=== PATIENT | female | born 1940 | race Caucasian/White ===

== ENCOUNTER 2018-02-04 10:11 | Day surgery (SDC) | payer MEDICARE, OTHER ==
[~2018-02-04 10:11] MED LIST: Lactated Ringers 1,000 ML IV SCH
[2018-02-04] MEDS ORDERED: fentaNYL 100 MCG/2 ML SDV ONE (12:34)
[2018-02-04] MEDS ORDERED: Propofol 200 MG/20 ML SDV ONE (12:34)
--- NOTE | 2018-02-04 13:56 | OR ---
PREOPERATIVE DIAGNOSES: 1. Screening colonoscopy. 2. History of polyps. POSTOPERATIVE DIAGNOSIS: Sigmoid diverticulosis, otherwise normal exam. PROCEDURE PROPOSED: Total flexible colonoscopy. PROCEDURE DONE: Total flexible colonoscopy. INDICATION: This is a 77-year-old female, who comes in for colonic surveillance. Her last examination was 10 years ago. She claims that she had a polyp at that point, but not confirmed. TECHNIQUE: She was brought to the endoscopy suite, placed in left lateral decubitus position. She was sedated with propofol per [employer]. The flexible video colonoscope was then passed transanally and under visualization advanced to the cecum. Examination revealed normal ascending, transverse, and descending colon. Sigmoid colon revealed moderate diverticulosis and the rectum was normal. There was no evidence of any polyps or colitis or other abnormalities. The scope was then withdrawn. She tolerated the procedure well. FINAL IMPRESSION: Sigmoid diverticulosis, otherwise normal exam. PLAN: The patient is reassured. I felt that she does not need any future exams based on her age. SCM: 02/04/2018 13:28:23 MODL: 02/04/2018 13:50:14 /[id number]
[2018-02-04 14:01] VITALS: BP 129/47
== END 2018-02-04 14:30 | disposition home or self-care (01) ==
LOC: VM.SDS 10:11
PROVIDERS: ATTEND Surgery
DX: Z12.11 Encounter for screening for malignant neoplasm of colon (principal); K57.30 Diverticulosis of large intestine without perforation or abscess without bleeding; G89.29 Other chronic pain; M54.32 Sciatica, left side; E03.9 Hypothyroidism, unspecified; E78.5 Hyperlipidemia, unspecified; R73.03 Prediabetes; Z86.010 Personal history of colon polyps; Z91.09 Other allergy status, other than to drugs and biological substances; Z91.030 Bee allergy status; Z79.891 Long term (current) use of opiate analgesic; Z79.899 Other long term (current) drug therapy
CPT/HCPCS: 00812; J2704; J3010; J7120

== ENCOUNTER 2018-04-06 07:07 | Emergency (ER) | payer MEDICARE, OTHER ==
[2018-04-06 07:37] VITALS: BP 117/57
--- NOTE | 2018-04-06 07:41 | EDM.PDOC ---
ED HPI GENERAL MEDICAL PROBLEM - General Chief Complaint: General Stated Complaint: RIB TROUBLES Time Seen by Provider: 04/06/18 07:20 Source of Information: Reports: Patient - History of Present Illness INITIAL COMMENTS - FREE TEXT/NARRATIVE: Patient comes into the emergency department after 2 day history of left-sided rib pain. Patient was staying at her daughter's house and had fallen off the couch plus was sleeping. She states she believes she hit her end table under her left breast area. She states that the pain has progressivly gotten worse. She is unable to take a deep breath without pain. Denies any dizziness, lightheadedness, hitting her head, chest pain, or shortness of breath. Onset: Sudden Left Lower Chest Pain Score (Numeric/FACES): 4 - Related Data Allergies Allergy/AdvReac Type Severity Reaction Status Date / Time Adhesives Allergy Blisters Uncoded 04/06/18 07:26 Bee stings Allergy Anaphylactic Uncoded 04/06/18 07:26 Shock Home Meds: Home Meds Alendronate Sodium [Fosamax] 70 mg PO WEEKLY 01/10/17 [History] Armodafinil [Nuvigil] 250 mg PO DAILY 01/10/17 [History] Aspirin [Halfprin] 81 mg PO DAILY 01/10/17 [History] Celecoxib [CeleBREX] 200 mg PO BID 01/10/17 [History] DULoxetine [Cymbalta] 60 mg PO DAILY 01/10/17 [History] Levothyroxine [Synthroid] 112 mcg PO DAILY 01/10/17 [History] Pregabalin [Lyrica] 75 mg PO TID 01/10/17 [History] oxyCODONE 5 mg PO TID PRN 01/10/17 [History] Cholecalciferol (Vitamin D3) [Vitamin D3] 2,000 unit PO DAILY 10/26/17 [History] EPINEPHrine [Epipen 2-Nick] 1 dose IM ASDIRECTED 10/26/17 [History] Methotrexate 4 tab PO WEEKLY 10/26/17 [History] buPROPion [Wellbutrin] 100 mg PO BID 10/26/17 [History] rOPINIRole HCl [Requip] 0.25 mg PO BID PRN 10/26/17 [History] rOPINIRole HCl [Requip] 1 tab PO BEDTIME 10/26/17 [History] Rosuvastatin [Crestor] 20 mg PO DAILY 02/01/18 [History] hydrOXYzine Pamoate [Vistaril] 25 mg PO TID 02/01/18 [History] Past Medical History Cardiovascular History: Reports: High Cholesterol Other Cardiovascular History: Hyperlipidemia Other Respiratory History: Nocturnal oxygen dependence Gastrointestinal History: Reports: Colon Polyp Musculoskeletal History: Reports: Arthritis, Back Pain, Chronic, Fibromyalgia, Osteoporosis, Other (See Below) Neurological History: Reports: Other (See Below) Other Neuro History: Fibromyalgia. Restless leg syndrome Psychiatric History: Reports: Depression Endocrine/Metabolic History: Reports: Hypothyroidism, Other (See Below) Other Endocrine/Metabolic History: prediabetes Hematologic History: Reports: B12 Deficiency Immunologic History: Reports: None Oncologic (Cancer) History: Reports: None - Infectious Disease History Infectious Disease History: Reports: Rheumatic Fever - Past Surgical History Endocrine Surgical History: Social & Family History - Family History Oncologic: Reports: Uterine - Caffeine Use Caffeine Use: Reports: Coffee Other Caffeine Use: 3 cups /day - Living Situation & Occupation Living situation: Reports: , with Spouse Occupation: Retired (Tailor) ED ROS GENERAL - Review of Systems Review Of Systems: See Below Constitutional: Reports: No Symptoms HEENT: Reports: No Symptoms Respiratory: Reports: No Symptoms Cardiovascular: Reports: No Symptoms Endocrine: Reports: No Symptoms GI/Abdominal: Reports: No Symptoms Musculoskeletal: Reports: No Symptoms Skin: Reports: No Symptoms Neurological: Reports: No Symptoms Psychiatric: Reports: No Symptoms ED EXAM, GENERAL - Physical Exam Exam: See Below Exam Limited By: No Limitations General Appearance: Alert, WD/WN, No Apparent Distress Head: Atraumatic, Normocephalic Neck: Normal Inspection, Supple, Non-Tender, Full Range of Motion Respiratory/Chest: No Respiratory Distress, Lungs Clear, Normal Breath Sounds, No Accessory Muscle Use, Other (tenderness left side lower chest. No bruising, redness, swelling and warmth noted) Cardiovascular: Normal Peripheral Pulses Extremities: Normal Inspection Neurological: Alert, Oriented Skin Exam: Warm, Dry, Intact, Normal Color Course - Vital Signs Last Recorded V/S: Last Vital Signs Temp 36.4 C 04/06/18 07:10 Pulse 60 04/06/18 07:10 Resp 18 04/06/18 07:10 BP 117/57 L 04/06/18 07:10 Pulse Ox - Orders/Labs/Meds Orders: Active Orders 24 hr Category Date Time Status Ribs 2V w Chest Lt [CR] Stat Exams 04/06/18 07:32 Taken Departure - Departure Time of Disposition: 09:00 Disposition: Home, Self-Care 01 Condition: Good Clinical Impression: Rib pain on left side - Discharge Information Instructions: Costochondritis, [id number] Forms: ED Department Discharge Additional Instructions: 1. rest 2. place ice and heat to help with pain 3. Take OTC medications as needed for pain control 4. Follow up in a week if not better 5. activity as tolerated - My Orders Last 24 Hours: My Active Orders 04/06/18 07:32 Ribs 2V w Chest Lt [CR] Stat - Assessment/Plan Last 24 Hours: My Active Orders 04/06/18 07:32 Ribs 2V w Chest Lt [CR] Stat Assessment:: 1. rib pain Plan: 1. xray of ribs. Reviewed results with pt 2. Education provided regarding splinting when coughing 3. OTC pain relief education provided 4. pt is advised to follow up with PCP if not better in a week 5. Ice area 3 times daily for 20 mins
== END 2018-04-06 09:00 | disposition home or self-care (01) ==
LOC: VM.ED 07:07
DX: R07.81 Pleurodynia (principal); E78.00 Pure hypercholesterolemia, unspecified; F32.9 Major depressive disorder, single episode, unspecified; E03.9 Hypothyroidism, unspecified; Z91.030 Bee allergy status; Z91.048 Other nonmedicinal substance allergy status; Z79.82 Long term (current) use of aspirin; Z79.899 Other long term (current) drug therapy; W08.XXXA Fall from other furniture, initial encounter; W22.03XA Walked into furniture, initial encounter
CPT/HCPCS: 71101-LT; 99283; 99283-GF

== ENCOUNTER 2019-08-27 12:07 | Emergency (ER) | payer MEDICARE, OTHER ==
[2019-08-27] MEDS ORDERED: Lactated Ringers 1,000 ML IV ONE (12:36)
[2019-08-27] MEDS ORDERED: Sodium Chloride 0.9% 10 ML Syringe FLUSH PRN (12:36)
--- NOTE | 2019-08-27 15:06 | CR ---
[id number] RAD/RAD Chest PA And Lateral EXAM: RAD Chest PA And Lateral INDICATION: DIZZINESS. COMPARISON: April 06, 2018. DISCUSSION: Cardiomediastinal silhouette is unchanged in size and contour compared to the prior examination. No infiltrate, effusion, pneumothorax, or edema. IMPRESSION: No acute findings or significant change from the prior examination. Brady Coelho MD 08/27/19 [id number] Thank you for allowing us to participate in the care of your patient.
--- NOTE | 2019-08-27 15:06 | EDM.PDOC ---
ED HPI GENERAL MEDICAL PROBLEM - General Chief Complaint: General Stated Complaint: FAINTING, DIZZY Time Seen by Provider: 08/27/19 12:20 Source of Information: Reports: Patient History Limitations: Reports: No Limitations - History of Present Illness INITIAL COMMENTS - FREE TEXT/NARRATIVE: PT at her appointment felt, dizzy like she was going to pass out. has not eaten today. Onset: Today Severity: Mild Improves with: Reports: None Worsens with: Reports: None - Related Data Allergies Allergy/AdvReac Type Severity Reaction Status Date / Time Adhesives Allergy Blisters Uncoded 08/27/19 13:41 Bee stings Allergy Anaphylactic Uncoded 08/27/19 13:41 Shock Home Meds: Home Meds Alendronate Sodium [Fosamax] 70 mg PO WEEKLY 01/10/17 [History] Armodafinil [Nuvigil] 250 mg PO DAILY 01/10/17 [History] Aspirin [Halfprin] 81 mg PO DAILY 01/10/17 [History] Celecoxib [CeleBREX] 200 mg PO BID 01/10/17 [History] DULoxetine [Cymbalta] 60 mg PO DAILY 01/10/17 [History] Levothyroxine [Synthroid] 112 mcg PO DAILY 01/10/17 [History] Pregabalin [Lyrica] 75 mg PO TID 01/10/17 [History] oxyCODONE 5 mg PO TID PRN 01/10/17 [History] Cholecalciferol (Vitamin D3) [Vitamin D3] 2,000 unit PO DAILY 10/26/17 [History] EPINEPHrine [Epipen 2-Nick] 1 dose IM ASDIRECTED 10/26/17 [History] Methotrexate 4 tab PO WEEKLY 10/26/17 [History] buPROPion [Wellbutrin] 100 mg PO BID 10/26/17 [History] rOPINIRole HCl [Requip] 0.25 mg PO BID PRN 10/26/17 [History] rOPINIRole HCl [Requip] 1 tab PO BEDTIME 10/26/17 [History] Rosuvastatin [Crestor] 20 mg PO DAILY 02/01/18 [History] hydrOXYzine pamoate [Vistaril] 25 mg PO TID 02/01/18 [History] Past Medical History Cardiovascular History: Reports: High Cholesterol Other Cardiovascular History: Hyperlipidemia Other Respiratory History: Nocturnal oxygen dependence Gastrointestinal History: Reports: Colon Polyp Musculoskeletal History: Reports: Arthritis, Back Pain, Chronic, Fibromyalgia, Osteoporosis 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 Restless leg syndrome Psychiatric History: Reports: Depression Endocrine/Metabolic History: Reports: Hypothyroidism, Other (See Below) Other Endocrine/Metabolic History: prediabetes Hematologic History: Reports: Anemia, B12 Deficiency Immunologic History: Reports: None Oncologic (Cancer) History: Reports: None - Infectious Disease History Infectious Disease History: Reports: Rheumatic Fever - Past Surgical History Female Surgical History: Reports: Hysterectomy Dermatological Surgical History: Reports: None Social & Family History - Family History Oncologic: Reports: Uterine - Tobacco Use Smoking Status *Q: Never Smoker - Caffeine Use Caffeine Use: Reports: Coffee Other Caffeine Use: 3 cups /day - Recreational Drug Use Recreational Drug Use: No - Living Situation & Occupation Living situation: Reports: , with Spouse Occupation: Retired (Tailor) ED ROS GENERAL - Review of Systems Review Of Systems: See Below Constitutional: Reports: No Symptoms HEENT: Reports: No Symptoms Respiratory: Reports: No Symptoms Cardiovascular: Reports: No Symptoms Endocrine: Reports: No Symptoms GI/Abdominal: Reports: No Symptoms : Reports: No Symptoms Musculoskeletal: Reports: No Symptoms Skin: Reports: No Symptoms Neurological: Reports: No Symptoms, Dizziness Psychiatric: Reports: No Symptoms Hematologic/Lymphatic: Reports: No Symptoms Immunologic: Reports: No Symptoms ED EXAM, GENERAL - Physical Exam Exam: See Below Free Text/Narrative:: Pt to er room IV LR bolus, pt given food tray, able to ambulate w/o dizziness, dizziness has resolved. Exam Limited By: No Limitations General Appearance: Alert, WD/WN, No Apparent Distress Eye Exam: Bilateral Eye: Normal Inspection Nose: Normal Inspection, Normal Mucosa Throat/Mouth: Normal Inspection Head: Atraumatic, Normocephalic Neck: Normal Inspection Respiratory/Chest: No Respiratory Distress, Lungs Clear, Normal Breath Sounds, No Accessory Muscle Use, Chest Non-Tender Cardiovascular: Normal Peripheral Pulses, Regular Rate, Rhythm GI/Abdominal: Normal Bowel Sounds, Soft Neurological: Alert, Oriented, CN II-XII Intact Psychiatric: Normal Affect, Normal Mood Skin Exam: Warm, Dry, Intact, Normal Color, No Rash Course - Vital Signs Last Recorded V/S: Last Vital Signs Temp 37.0 C 08/27/19 12:10 Pulse 70 08/27/19 12:10 Resp 18 08/27/19 12:10 BP 99/37 L 08/27/19 12:10 Pulse Ox 92 L 08/27/19 12:10 - Orders/Labs/Meds Orders: Active Orders 24 hr Category Date Time Status EKG Documentation Completion [RC] STAT Care 08/27/19 12:36 Active Chest 2V [CR] Stat Exams 08/27/19 13:36 Taken Sodium Chloride 0.9% [Saline Flush] Med 08/27/19 12:36 Active 10 ml FLUSH ASDIRECTED PRN Peripheral IV Insertion Adult [OM.PC] Routine Oth 08/27/19 12:36 Ordered Medication Orders Sodium Chloride (Saline Flush) 10 ml FLUSH ASDIRECTED PRN PRN Reason: Keep Vein Open Meds: Medications Generic Name Dose Route Start Last Admin Trade Name Freq PRN Reason Stop Dose Admin Sodium Chloride 10 ml 08/27/19 12:36 Saline Flush FLUSH ASDIRECTED PRN Keep Vein Open Discontinued Medications Generic Name Dose Route Start Last Admin Trade Name Freq PRN Reason Stop Dose Admin Lactated Ringer's 1,000 mls @ 999 drops/min 08/27/19 12:36 Ringers, Lactated IV 08/27/19 12:51 ONETIME ONE Departure - Departure Time of Disposition: 15:05 Disposition: Home, Self-Care 01 Condition: Good Clinical Impression: Near syncope - Discharge Information *PRESCRIPTION DRUG MONITORING PROGRAM REVIEWED*: Not Applicable *COPY OF PRESCRIPTION DRUG MONITORING REPORT IN PATIENT WIC[facility]: Not Applicable Instructions: Near-Syncope Referrals: Lena Sharp DO [Primary Care Provider] - Additional Instructions: Follow up on 09/01/19 at 1:00pm for your appointment with your PCP. - My Orders Last 24 Hours: My Active Orders 08/27/19 12:36 EKG Documentation Completion [RC] STAT Sodium Chloride 0.9% [Saline Flush] 10 ml FLUSH ASDIRECTED PRN Peripheral IV Insertion Adult [OM.PC] Routine 08/27/19 13:36 Chest 2V [CR] Stat - Assessment/Plan Last 24 Hours: My Active Orders 08/27/19 12:36 EKG Documentation Completion [RC] STAT Sodium Chloride 0.9% [Saline Flush] 10 ml FLUSH ASDIRECTED PRN Peripheral IV Insertion Adult [OM.PC] Routine 08/27/19 13:36 Chest 2V [CR] Stat
[2019-08-27 15:26] VITALS: BP 103/45; PULSE 71
== END 2019-08-27 15:25 | disposition home or self-care (01) ==
LOC: VM.ED 12:07
DX: R55 Syncope and collapse (principal); E03.9 Hypothyroidism, unspecified; F32.9 Major depressive disorder, single episode, unspecified; Z79.899 Other long term (current) drug therapy; Z79.82 Long term (current) use of aspirin; Z91.030 Bee allergy status; Z91.09 Other allergy status, other than to drugs and biological substances
CPT/HCPCS: 71046; 93005; 96360; 99284; J7120

== ENCOUNTER 2020-05-31 13:43 | Emergency (ER) | payer MEDICARE, OTHER ==
[2020-05-31] MEDS ORDERED: Sodium Chloride 0.9% 1,000 ML IV ONE (13:55)
[2020-05-31] MEDS ORDERED: Sodium Chloride 0.9% 10 ML Syringe FLUSH PRN (13:55)
--- NOTE | 2020-05-31 14:20 | CR ---
[id number] RAD/RAD Chest PA And Lateral EXAM: RAD Chest PA And Lateral INDICATION: SYNCOPE COMPARISON: August 2019. DISCUSSION: Cardiomediastinal silhouette is unchanged in size and contour compared to the prior examination. No infiltrate, effusion, pneumothorax, or edema. Spinal stimulator device remains in place. IMPRESSION: No acute findings or significant change from the prior examination. Brady Coelho MD 05/31/20 [id number] Thank you for allowing us to participate in the care of your patient.
[2020-05-31 14:38] LABS: CHLORIDE,CL 106 mmol/L (98-107); SODIUM,NA 141 mmol/L (136-145)
[2020-05-31 14:42] LABS: ANION GAP 14.6 mmol/L (10-20)
--- NOTE | 2020-05-31 15:08 | EDM.PDOC ---
ED HPI GENERAL MEDICAL PROBLEM - General Chief Complaint: Syncope Stated Complaint: FAINTED, SHAKING Time Seen by Provider: 05/31/20 13:52 Source of Information: Reports: Patient, Family History Limitations: Reports: No Limitations - History of Present Illness INITIAL COMMENTS - FREE TEXT/NARRATIVE: Patient comes to the ed with complaints of syncopal episode at around 10 am toda y. Also complains of some tremors. Accompanied by her and daughter. Daughter states she had several of these today. Daughter caught her earlier when she had the last episode, preventing any injury. Denies prior episode, however chart review shows a presentation to this ED in August, for near syncope. Has remote history of myocardial infarction, denies prior stroke. Denies recent contact with any persons with COVID, no recent travel. No recent fevers, diarrhea, nausea, vomiting, chest pain, sob. Complains of urinary frequency, however this has been problematic and chronic. No new recent urinary complaints such as burning, urinary retention. Onset: Today Duration: Intermittent Severity: Moderate Worsens with: Reports: Movement Associated Symptoms: Reports: No Other Symptoms - Related Data Allergies Allergy/AdvReac Type Severity Reaction Status Date / Time Adhesives Allergy Blisters Uncoded 08/27/19 13:41 Bee stings Allergy Anaphylactic Uncoded 08/27/19 13:41 Shock Home Meds: Home Meds Alendronate Sodium [Fosamax] 70 mg PO WEEKLY 01/10/17 [History] Armodafinil [Nuvigil] 250 mg PO DAILY 01/10/17 [History] Aspirin [Halfprin] 81 mg PO DAILY 01/10/17 [History] Celecoxib [CeleBREX] 200 mg PO BID 01/10/17 [History] DULoxetine [Cymbalta] 60 mg PO DAILY 01/10/17 [History] Levothyroxine [Synthroid] 112 mcg PO DAILY 01/10/17 [History] Pregabalin [Lyrica] 75 mg PO TID 01/10/17 [History] oxyCODONE 5 mg PO TID PRN 01/10/17 [History] Cholecalciferol (Vitamin D3) [Vitamin D3] 2,000 unit PO DAILY 10/26/17 [History] EPINEPHrine [Epipen 2-Nick] 1 dose IM ASDIRECTED 10/26/17 [History] Methotrexate 4 tab PO WEEKLY 10/26/17 [History] buPROPion [Wellbutrin] 100 mg PO BID 10/26/17 [History] rOPINIRole HCl [Requip] 0.25 mg PO BID PRN 10/26/17 [History] rOPINIRole HCl [Requip] 1 tab PO BEDTIME 10/26/17 [History] Rosuvastatin [Crestor] 20 mg PO DAILY 02/01/18 [History] hydrOXYzine pamoate [Vistaril] 25 mg PO TID 02/01/18 [History] Past Medical History Cardiovascular History: Reports: High Cholesterol Other Cardiovascular History: Hyperlipidemia Other Respiratory History: Nocturnal oxygen dependence Gastrointestinal History: Reports: Colon Polyp Musculoskeletal History: Reports: Arthritis, Back Pain, Chronic, Fibromyalgia, Osteoporosis, Other (See Below) 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 Restless leg syndrome Psychiatric History: Reports: Depression Endocrine/Metabolic History: Reports: Hypothyroidism, Other (See Below) Other Endocrine/Metabolic History: prediabetes Hematologic History: Reports: B12 Deficiency Immunologic History: Reports: None Oncologic (Cancer) History: Reports: None - Infectious Disease History Infectious Disease History: Reports: Rheumatic Fever - Past Surgical History Female Surgical History: Reports: Hysterectomy Dermatological Surgical History: Reports: None Social & Family History - Family History Oncologic: Reports: Uterine - Caffeine Use Caffeine Use: Reports: Coffee Other Caffeine Use: 3 cups /day - Living Situation & Occupation Living situation: Reports: , with Spouse Occupation: Retired (Tailor) ED ROS GENERAL - Review of Systems Review Of Systems: See Below Constitutional: Reports: No Symptoms HEENT: Reports: No Symptoms Respiratory: Reports: No Symptoms Cardiovascular: Reports: No Symptoms Endocrine: Reports: No Symptoms GI/Abdominal: Reports: No Symptoms : Reports: No Symptoms Musculoskeletal: Reports: Back Pain (chronic) Skin: Reports: No Symptoms Neurological: Reports: Dizziness, Syncope, Tremors Psychiatric: Reports: No Symptoms Hematologic/Lymphatic: Reports: No Symptoms Immunologic: Reports: No Symptoms - Physical Exam Exam: See Below General Appearance: Alert, WD/WN, No Apparent Distress Ears: Normal TMs Nose: Normal Inspection, Normal Mucosa, No Blood Throat/Mouth: Normal Inspection, Normal Lips, Normal Teeth, Normal Gums, Normal Oropharynx, Normal Voice, No Airway Compromise Head Exam: Atraumatic, Normocephalic Neck: Normal Inspection, Supple, Non-Tender, Full Range of Motion Respiratory/Chest: No Respiratory Distress, Lungs Clear, Normal Breath Sounds, No Accessory Muscle Use, Chest Non-Tender Cardiovascular: Normal Peripheral Pulses, Regular Rate, Rhythm, No Edema, No Gallop, No JVD, No Murmur, No Rub GI/Abdominal: Normal Bowel Sounds, Soft, Non-Tender, No Organomegaly, No Distention, No Abnormal Bruit, No Mass Neuro Exam (Abbreviated): Alert, Oriented, CN II-XII Intact, Normal Cognition, Normal Gait, Normal Reflexes, No Motor/Sensory Deficits Back Exam: Normal Inspection, Full Range of Motion, NT Extremities: Normal Inspection, Normal Range of Motion, Non-Tender, No Pedal Edema, Normal Capillary Refill Psychiatric: Normal Affect, Normal Mood Skin Exam: Warm, Dry, Intact, Normal Color, No Rash Course - Orders/Labs/Meds Orders: Active Orders 24 hr Category Date Time Status EKG 12 Lead [EKG Documentation Completion] [RC] STAT Care 05/31/20 13:56 Active Head wo Cont [CT] Stat Exams 05/31/20 14:58 Taken CULTURE URINE [RM] Stat Lab 05/31/20 16:00 Received Sodium Chloride 0.9% [Saline Flush] Med 05/31/20 13:55 Active 10 ml FLUSH ASDIRECTED PRN Saline Lock Insert [OM.PC] Routine Oth 05/31/20 13:55 Ordered Medication Orders Sodium Chloride (Saline Flush) 10 ml FLUSH ASDIRECTED PRN PRN Reason: Keep Vein Open Labs: Laboratory Tests 05/31/20 05/31/20 05/31/20 Range/Units 13:55 13:55 13:55 WBC 11.2 H (4.0-10.0) x10^3/uL RBC 3.19 L (4.00-5.50) x10^6/uL Hgb 9.3 L D (12.0-16.0) g/dL Hct 29.3 L (33.0-47.0) % MCV 91.8 (78.0-93.0) fL MCH 29.2 (26.0-32.0) pg MCHC 31.7 L (32.0-36.0) g/dL RDW Coeff of Jade 18.7 H (10.0-15.0) % Plt Count 178 (130-400) x10^3/uL Neut % (Auto) 75.4 (50.0-80.0) % Lymph % (Auto) 8.5 L (25.0-50.0) % Lassen % (Auto) 12.7 H (2.0-11.0) % Eos % (Auto) 3.0 (0.0-4.0) % Baso % (Auto) 0.4 (0.2-1.2) % D-Dimer, Quantitative (<=0.58) mg/LFEU Sodium 141 (136-145) mmol/L Potassium 4.6 (3.5-5.1) mmol/L Chloride 106 (98-107) mmol/L Carbon Dioxide 25 (21-32) mmol/L Anion Gap 14.6 (10-20) mmol/L BUN 25 H (7-18) mg/dL Creatinine 1.3 H (0.55-1.02) mg/dL Est Cr Clr Drug Dosing TNP Estimated GFR (MDRD) 40 Glucose 131 H (74-106) mg/dL Lactic Acid 1.2 (0.4-2.0) mmol/L Calcium 8.7 (8.5-10.1) mg/dL Corrected Calcium 9.66 (8.5-10.1) mg/dL Magnesium 2.3 (1.8-2.4) mg/dL Total Bilirubin 0.5 (0.2-1.0) mg/dL AST 25 (15-37) U/L ALT 32 (14-59) U/L Alkaline Phosphatase 135 H (46-116) U/L Creatine Kinase 51 (26-192) U/L Troponin I < 0.017 (<=0.056) ng/mL C-Reactive Protein 9.1 H (<=0.9) mg/dL NT-Pro-B Natriuret Pep (<=450) pg/mL Total Protein 6.5 (6.4-8.2) g/dL Albumin 2.8 L (3.4-5.0) g/dL Globulin 3.7 Albumin/Globulin Ratio 0.76 TSH, Ultra Sensitive (0.358-3.74) uIU/mL Urine Color (YELLOW) Urine Appearance (CLEAR) Urine pH (5.0-8.0) Ur Specific Jefferson Urine Protein (NEGATIVE) mg/dL Urine Glucose (UA) (NEGATIVE) mg/dL Urine Ketones (NEGATIVE) mg/dL Urine Occult Blood (NEGATIVE) Urine Nitrite (NEGATIVE) Urine Bilirubin (NEGATIVE) Urine Urobilinogen (0.2) EU/dL Ur Leukocyte Esterase (NEGATIVE) Urine RBC (NOT SEEN) /HPF Urine WBC (NOT SEEN) /HPF Ur Squamous Epith Cells (NEGATIVE) /HPF Urine Bacteria (NEGATIVE) /HPF Urine Mucus (NEGATIVE) /LPF 05/31/20 05/31/20 05/31/20 Range/Units 13:55 13:55 13:55 WBC (4.0-10.0) x10^3/uL RBC (4.00-5.50) x10^6/uL Hgb (12.0-16.0) g/dL Hct (33.0-47.0) % MCV (78.0-93.0) fL MCH (26.0-32.0) pg MCHC (32.0-36.0) g/dL RDW Coeff of Jade (10.0-15.0) % Plt Count (130-400) x10^3/uL Neut % (Auto) (50.0-80.0) % Lymph % (Auto) (25.0-50.0) % Lassen % (Auto) (2.0-11.0) % Eos % (Auto) (0.0-4.0) % Baso % (Auto) (0.2-1.2) % D-Dimer, Quantitative 0.61 H (<=0.58) mg/LFEU Sodium (136-145) mmol/L Potassium (3.5-5.1) mmol/L Chloride (98-107) mmol/L Carbon Dioxide (21-32) mmol/L Anion Gap (10-20) mmol/L BUN (7-18) mg/dL Creatinine (0.55-1.02) mg/dL Est Cr Clr Drug Dosing Estimated GFR (MDRD) Glucose (74-106) mg/dL Lactic Acid (0.4-2.0) mmol/L Calcium (8.5-10.1) mg/dL Corrected Calcium (8.5-10.1) mg/dL Magnesium (1.8-2.4) mg/dL Total Bilirubin (0.2-1.0) mg/dL AST (15-37) U/L ALT (14-59) U/L Alkaline Phosphatase (46-116) U/L Creatine Kinase (26-192) U/L Troponin I (<=0.056) ng/mL C-Reactive Protein (<=0.9) mg/dL NT-Pro-B Natriuret Pep 570 H (<=450) pg/mL Total Protein (6.4-8.2) g/dL Albumin (3.4-5.0) g/dL Globulin Albumin/Globulin Ratio TSH, Ultra Sensitive 0.444 (0.358-3.74) uIU/mL Urine Color (YELLOW) Urine Appearance (CLEAR) Urine pH (5.0-8.0) Ur Specific Jefferson Urine Protein (NEGATIVE) mg/dL Urine Glucose (UA) (NEGATIVE) mg/dL Urine Ketones (NEGATIVE) mg/dL Urine Occult Blood (NEGATIVE) Urine Nitrite (NEGATIVE) Urine Bilirubin (NEGATIVE) Urine Urobilinogen (0.2) EU/dL Ur Leukocyte Esterase (NEGATIVE) Urine RBC (NOT SEEN) /HPF Urine WBC (NOT SEEN) /HPF Ur Squamous Epith Cells (NEGATIVE) /HPF Urine Bacteria (NEGATIVE) /HPF Urine Mucus (NEGATIVE) /LPF 05/31/20 Range/Units 16:00 WBC (4.0-10.0) x10^3/uL RBC (4.00-5.50) x10^6/uL Hgb (12.0-16.0) g/dL Hct (33.0-47.0) % MCV (78.0-93.0) fL MCH (26.0-32.0) pg MCHC (32.0-36.0) g/dL RDW Coeff of Jade (10.0-15.0) % Plt Count (130-400) x10^3/uL Neut % (Auto) (50.0-80.0) % Lymph % (Auto) (25.0-50.0) % Lassen % (Auto) (2.0-11.0) % Eos % (Auto) (0.0-4.0) % Baso % (Auto) (0.2-1.2) % D-Dimer, Quantitative (<=0.58) mg/LFEU Sodium (136-145) mmol/L Potassium (3.5-5.1) mmol/L Chloride (98-107) mmol/L Carbon Dioxide (21-32) mmol/L Anion Gap (10-20) mmol/L BUN (7-18) mg/dL Creatinine (0.55-1.02) mg/dL Est Cr Clr Drug Dosing Estimated GFR (MDRD) Glucose (74-106) mg/dL Lactic Acid (0.4-2.0) mmol/L Calcium (8.5-10.1) mg/dL Corrected Calcium (8.5-10.1) mg/dL Magnesium (1.8-2.4) mg/dL Total Bilirubin (0.2-1.0) mg/dL AST (15-37) U/L ALT (14-59) U/L Alkaline Phosphatase (46-116) U/L Creatine Kinase (26-192) U/L Troponin I (<=0.056) ng/mL C-Reactive Protein (<=0.9) mg/dL NT-Pro-B Natriuret Pep (<=450) pg/mL Total Protein (6.4-8.2) g/dL Albumin (3.4-5.0) g/dL Globulin Albumin/Globulin Ratio TSH, Ultra Sensitive (0.358-3.74) uIU/mL Urine Color Yellow (YELLOW) Urine Appearance Slightly cloudy H (CLEAR) Urine pH 6.5 (5.0-8.0) Ur Specific Jefferson 1.010 Urine Protein Negative (NEGATIVE) mg/dL Urine Glucose (UA) Negative (NEGATIVE) mg/dL Urine Ketones Negative (NEGATIVE) mg/dL Urine Occult Blood Negative (NEGATIVE) Urine Nitrite Positive H (NEGATIVE) Urine Bilirubin Negative (NEGATIVE) Urine Urobilinogen 1.0 (0.2) EU/dL Ur Leukocyte Esterase Trace H (NEGATIVE) Urine RBC 0-5 (NOT SEEN) /HPF Urine WBC 0-5 (NOT SEEN) /HPF Ur Squamous Epith Cells Rare (NEGATIVE) /HPF Urine Bacteria Many H (NEGATIVE) /HPF Urine Mucus Rare H (NEGATIVE) /LPF Meds: Medications Generic Name Dose Route Start Last Admin Trade Name Freq PRN Reason Stop Dose Admin Sodium Chloride 10 ml 05/31/20 13:55 Saline Flush FLUSH ASDIRECTED PRN Keep Vein Open Discontinued Medications Generic Name Dose Route Start Last Admin Trade Name Alie PRN Reason Stop Dose Admin Sodium Chloride 1,000 mls @ 999 mls/hr 05/31/20 13:55 05/31/20 14:12 Normal Saline IV 05/31/20 14:55 999 mls/hr ONETIME ONE Administration Iopamidol 100 ml 05/31/20 15:34 05/31/20 15:46 Isovue-300 (61%) IVPUSH 05/31/20 15:35 100 ml ONETIME ONE Administration Departure - Departure Time of Disposition: 18:37 Disposition: DC/Tfer to Other 70 Condition: Fair Clinical Impression: Syncope - Discharge Information *PRESCRIPTION DRUG MONITORING PROGRAM REVIEWED*: Not Applicable *COPY OF PRESCRIPTION DRUG MONITORING REPORT IN PATIENT WICHO: Not Applicable Referrals: Lena Sharp, [Primary Care Provider] - Forms: ED Department Discharge, Interfacility Transfer [facility] ED Communication - ED Communication Date/Time Date: 05/31/20 Time Called: 18:00 - Discussed Case With (1) Discussed Case With (1): Admitting Provider (Report called to Dr. Villagran, patient accepted.) - Problem List & Annotations (1) Syncope SNOMED Code(s): 873650520 Code(s): R55 - SYNCOPE AND COLLAPSE Status: Acute Priority: Medium Current Visit: Yes Qualifiers: Encounter type: subsequent encounter - Problem List Review Problem List Initiated/Reviewed/Updated: Yes - My Orders Last 24 Hours: My Active Orders 05/31/20 13:55 Sodium Chloride 0.9% [Saline Flush] 10 ml FLUSH ASDIRECTED PRN Saline Lock Insert [OM.PC] Routine 05/31/20 13:56 EKG 12 Lead [EKG Documentation Completion] [RC] STAT 05/31/20 14:58 Head wo Cont [CT] Stat 05/31/20 16:00 CULTURE URINE [RM] Stat - Assessment/Plan Last 24 Hours: My Active Orders 05/31/20 13:55 Sodium Chloride 0.9% [Saline Flush] 10 ml FLUSH ASDIRECTED PRN Saline Lock Insert [OM.PC] Routine 05/31/20 13:56 EKG 12 Lead [EKG Documentation Completion] [RC] STAT 05/31/20 14:58 Head wo Cont [CT] Stat 05/31/20 16:00 CULTURE URINE [RM] Stat Assessment:: syncope Plan: Discharge to [facility] for further work-up to determine if syncope is cardiogenic/neurologic in nature, other organic causes.
[2020-05-31] MEDS ORDERED: Iopamidol 612 MG/ML 100 ML Bottle IVPUSH ONE (15:34)
--- NOTE | 2020-05-31 16:48 | CT ---
[id number] CT/CTA Chest EXAM: CTA Chest CLINICAL DATA: SYNCOPE. COMPARISON: Radiograph from today. FINDINGS: LUNGS: Small area of subpleural nodularity in the right middle lobe. Findings are nonspecific, however most consistent with mild granulomas change. No suspicious parenchymal nodularity. No evidence of lobar pneumonia, effusion, edema, or pneumothorax. HEART AND GREAT VESSELS: Negative for pulmonary embolus. Heart is normal in size. No pericardial effusion. Thoracic aorta is normal in caliber. No dissection. MEDIASTINUM AND LYMPHATICS: No mediastinal or hilar lymphadenopathy. UPPER ABDOMINAL ORGANS: Hiatus hernia. Otherwise unremarkable. BONES: Scattered changes of spondylosis in the spine. No fracture or osseous lesion. IMPRESSION: Negative for pulmonary embolus other acute findings in the chest. Other findings are described above. Brady Coelho MD 05/31/20 [id number] Thank you for allowing us to participate in the care of your patient.
[2020-05-31 19:37] VITALS: BP 128/62; PULSE 64
[2020-05-31] MEDS ORDERED: Nitrofurantoin Monohydrate/Macrocrystalline 100 MG Cap PO SCH (20:00)
--- NOTE | 2020-06-01 08:18 | CT ---
[id number] CT/CT Head WO IV EXAM: CT Head WO IV CLINICAL DATA: SYNCOPE. COMPARISON STUDY: None FINDINGS: No intracranial hemorrhage, extra-axial fluid collection, mass, or acute ischemia. Serpiginous area of hyperdensity along the right falx is suspected to represent artifact as opposed to acute subarachnoid hemorrhage. Generalized parenchymal atrophy with scattered areas of nonspecific white matter disease, commonly seen as sequela of chronic microvascular ischemia. Soft tissues are unremarkable. Paranasal sinuses and mastoid air cells are clear. IMPRESSION: No definite acute intracranial findings. Sal Triplett DO 06/01/20 0817 Thank you for allowing us to participate in the care of your patient.
== END 2020-05-31 18:45 | disposition other institution (70) ==
LOC: VM.ED 13:43
DX: R55 Syncope and collapse (principal); E78.5 Hyperlipidemia, unspecified; F32.9 Major depressive disorder, single episode, unspecified; E03.9 Hypothyroidism, unspecified; Z91.048 Other nonmedicinal substance allergy status; Z91.030 Bee allergy status; Z79.899 Other long term (current) drug therapy; Z79.82 Long term (current) use of aspirin
CPT/HCPCS: 70450; 71046; 71275; 80053; 81001; 82550; 83605; 83735; 83880; 84443; 84484; 85025; 85379; 86140; 87086; 87088; 87186; 93005; 96360; 96361; 99284-GF; 99285-25; A9270-GY; J7030; Q9967

== ENCOUNTER 2024-03-29 17:01 | Emergency (ER) | payer MEDICARE, OTHER ==
[2024-03-29 17:25] VITALS: BP 158/64; PULSE 61
[2024-03-29] MEDS: Take Home: Acetaminophen/HYDROcodone 325-5 MG, 5 Tab Pack PO ONE (17:37)
[2024-03-29] MEDS: Morphine 2 MG/ML SYRINGE IM ONE (17:38)
== END 2024-03-29 18:03 | disposition home or self-care (01) ==
LOC: VM.ED 17:01
DX: M54.42 Lumbago with sciatica, left side (principal); I25.2 Old myocardial infarction; E11.9 Type 2 diabetes mellitus without complications; E03.9 Hypothyroidism, unspecified; Z91.048 Other nonmedicinal substance allergy status; Z79.899 Other long term (current) drug therapy; Z90.710 Acquired absence of both cervix and uterus
CPT/HCPCS: 96372; 99283; A9270-GY; J2270

== ENCOUNTER 2024-05-26 08:46 | Emergency (ER) | payer MEDICARE ==
[2024-05-26] MEDS: HYDROmorphone 1 MG/ML Syringe SUBCUT ONE (09:15)
[2024-05-26 09:47] VITALS: BP 122/45; PULSE 59
== END 2024-05-26 09:52 | disposition home or self-care (01) ==
LOC: VM.ED 08:46
DX: G89.29 Other chronic pain (principal); E78.00 Pure hypercholesterolemia, unspecified; I25.2 Old myocardial infarction; E11.9 Type 2 diabetes mellitus without complications; E03.9 Hypothyroidism, unspecified; Z90.710 Acquired absence of both cervix and uterus; Z87.891 Personal history of nicotine dependence; Z91.030 Bee allergy status; Z91.048 Other nonmedicinal substance allergy status; Z79.899 Other long term (current) drug therapy
CPT/HCPCS: 96372; 99283; J1170

== ENCOUNTER 2024-08-21 17:28 | Emergency (ER) | payer MEDICARE ==
[2024-08-21 17:44] VITALS: BP 136/47; PULSE 63
== END 2024-08-21 19:01 | disposition home or self-care (01) ==
LOC: VM.ED 17:28
DX: S70.02XA Contusion of left hip, initial encounter (principal); I25.2 Old myocardial infarction; E78.00 Pure hypercholesterolemia, unspecified; K21.9 Gastro-esophageal reflux disease without esophagitis; E11.9 Type 2 diabetes mellitus without complications; E03.9 Hypothyroidism, unspecified; Z90.710 Acquired absence of both cervix and uterus; Z79.899 Other long term (current) drug therapy; Z91.030 Bee allergy status; Z91.048 Other nonmedicinal substance allergy status; W01.0XXA Fall on same level from slipping, tripping and stumbling without subsequent striking against object, initial encounter
CPT/HCPCS: 99283

== ENCOUNTER 2024-11-03 00:01 | Emergency (ER) | payer MEDICARE ==
[2024-11-03 00:41] VITALS: BP 148/50; PULSE 55
[2024-11-03] MEDS: valACYclovir 1,000 MG Tab PO STA (00:46)
[2024-11-03] MEDS: oxyCODONE 5 MG Tab PO STA (00:46)
[2024-11-03] MEDS: fentaNYL 25 MCG/HR Transdermal Patch TRDERM STA (01:30)
== END 2024-11-03 01:36 ==
LOC: VM.ED 00:01
DX: B02.9 Zoster without complications (principal); M48.00 Spinal stenosis, site unspecified; I25.2 Old myocardial infarction; E78.00 Pure hypercholesterolemia, unspecified; K21.9 Gastro-esophageal reflux disease without esophagitis; E11.9 Type 2 diabetes mellitus without complications; E03.9 Hypothyroidism, unspecified; Z90.710 Acquired absence of both cervix and uterus; Z79.899 Other long term (current) drug therapy; Z79.890 Hormone replacement therapy; Z79.1 Long term (current) use of non-steroidal anti-inflammatories (NSAID); Z91.030 Bee allergy status; Z91.048 Other nonmedicinal substance allergy status
CPT/HCPCS: 99283; A9270; 99284